=== PATIENT | male | born 1985 | race Caucasian/White ===

== ENCOUNTER 2024-12-13 14:41 | Emergency (ER) | payer OTHER ==
[~2024-12-13] VITALS: Ht 165.1 cm; Wt 76.8 kg
[2024-12-13 15:37] VITALS: TEMP 97.8
[2024-12-13] MEDS: KETOROLAC TROMETHAMINE 30 MG/ML VIAL IVP ONE (17:01)
[2024-12-13] MEDS: methocarbamoL 500 MG TABLET PO ONE (17:01)
[2024-12-13] MEDS: LIDOCAINE 5% TRANSDERMAL PATCH TD ONE (17:02)
[2024-12-13] MEDS ORDERED: METH-812 PO (18:42)
[2024-12-13 19:00] VITALS: BP 115/63; PULSE 78; RESP 16; O2SAT 99
== END 2024-12-13 20:31 | disposition home or self-care (01) ==
LOC: EMS 14:41
DX: M54.50 Low back pain, unspecified (principal); R10.9 Unspecified abdominal pain; V43.52XA Car driver injured in collision with other type car in traffic accident, initial encounter; Y93.89 Activity, other specified; Y92.410 Unspecified street and highway as the place of occurrence of the external cause; Y99.0 Civilian activity done for income or pay
CPT/HCPCS: 99283; 96374; 72100; J1885